=== PATIENT | female | born 1955 | race Caucasian/White ===

== ENCOUNTER 2023-04-13 09:54 | Day surgery (SDC) | payer MEDICARE, BC ==
[2023-04-13] MEDS: Polymyxin B/Trimethoprim 10 ML Bottle EYERT SCH ×4 (10:47→12:33)
[2023-04-13] MEDS: Brimonidine 0.2% Ophth Soln 5 ML Bottle EYERT SCH ×4 (10:52→12:33)
[2023-04-13] MEDS: Phenylephrine 2.5% Ophth Soln 2 ML Bot EYERT SCH ×6 (10:57→12:12)
[2023-04-13] MEDS: Tropicamide 1% Ophth Soln 15 ML Bottle EYERT SCH ×4 (11:03→11:46)
[2023-04-13] MEDS: Tetracaine HCl/PF 0.5% 4 ML Bottle EYEBOTH SCH ×5 (12:01→12:21)
[2023-04-13] MEDS: Lidocaine 1% PF 2 ML SDV INJECT SCH ×2 (12:01→12:22)
[2023-04-13] MEDS: Cefuroxime 10 MG/ML SYRINGE EYERT SCH ×2 (12:02→12:32)
[2023-04-13] MEDS: Pilocarpine 4% Ophth Soln 15 ML Bot EYERT SCH ×2 (12:02→12:33)
== END 2023-04-13 12:40 | disposition home or self-care (01) ==
LOC: JD.SDS 09:54
PROVIDERS: ATTEND Ophthalmology
DX: H25.811 Combined forms of age-related cataract, right eye (principal); I10 Essential (primary) hypertension; D86.9 Sarcoidosis, unspecified; Z96.1 Presence of intraocular lens; Z98.42 Cataract extraction status, left eye; Z87.891 Personal history of nicotine dependence; Z88.0 Allergy status to penicillin; Z88.8 Allergy status to other drugs, medicaments and biological substances; Z79.899 Other long term (current) drug therapy
CPT/HCPCS: 66984; A9270; J0697; V2632; 00142; J3490